=== PATIENT | female | born 1980 | race Caucasian/White ===

== ENCOUNTER 2020-05-07 21:36 | Outpatient (CLI) | payer BC ==
[~2020-05-07] VITALS: Ht 167.6 cm; Wt 82.3 kg
--- NOTE | 2020-05-07 21:30 | NUR ---
G3L2 at 40 weeks and 1 day arrives to unit with complaint of contractions every 4-5 minutes for 1 hour with some bloody show. Pt denies loss of fluid and reports good movement. Pt denies headache, RUQ pain, or changes in vision. Pt denies problems with this . Pt oriented to room, call light within reach, bed in low and locked position. Clean gown on. US and toco explained and applied. Vital signs done. Admission assessment started. SVE /-3 membranes intact. Discussed plan of care with patient and spouse.
[~2020-05-07 21:36] MED LIST: CARAFATE 1GM1 G PO; LEXAPRO20 MG PO; NUVARING VAG RING VG; ZANTAC 150MG T150 MG PO
[2020-05-07 21:45] VITALS: BP 137/84; PULSE 80; TEMP 98.4
[2020-05-07 22:00] VITALS: BP 125/76; PULSE 74
--- NOTE | 2020-05-07 22:20 | NUR ---
Monitors removed. Pt up to bathroom.
[2020-05-07 22:30] VITALS: BP 122/66; PULSE 72
[2020-05-07] MEDS ORDERED: PRENATAL (22:30)
--- NOTE | 2020-05-07 22:45 | NUR ---
SVE unchanged over 1 hour. Discussed discharge plan with patient, pt agreeable. See physician notification. 5491 - Discharge instructions reviewed with patient and spouse, pt verbalized understanding. Explained return precautions. Pt seen ambulating off unit with spouse.
== END 2020-05-07 22:55 | disposition home or self-care (01) ==
LOC: LDRO 21:36
DX: O62.9 Abnormality of forces of labor, unspecified (principal); Z3A.40 40 weeks gestation of pregnancy

== ENCOUNTER 2020-05-08 05:58 | Inpatient (IN) | payer BC, OTHER ==
[~2020-05-08] VITALS: Ht 167.6 cm; Wt 83.3 kg
[2020-05-08] VITALS (17 sets, daily range): BP systolic 105–140; BP diastolic 53–96; PULSE 80–126; TEMP 97.8–98.7
[~2020-05-08 05:58] MED LIST changes: +PRENATAL
--- NOTE | 2020-05-08 06:00 | NUR ---
Patient to LR4 with spouse via wheelchair, changed into gown, FHR/TOCO monitors placed and explained. Patient was here as a labor check last night and was sent home. Patient states she continued to contract and they became closer and stronger and feeling more pressure. Denies any leaking of fluid/vaginal bleeding/decreased movement. Plan of care discussed. 0610: Patient states her water broke. Clear fluid noted on chucks. 0612: SVE 6-/0 and clear amniotic fluid noted with check. Dr. Vail and Dr. Victoria notified. See physician notification. 0620: Patient off monitor to void. 0626: Patient requesting epidural and TStephan Gomez FOREST WORKER notified. 0630: IV started in left hand, blood obtained and to lab, LR infusing. Patient states she is feeling more pressure. 0635: SVE-890/0 0637: Dr. Victoria called and updated and on her way to hospital. FHR baseline 155 and recurrent variable decelerations noted.
[2020-05-08 06:46] LABS: BASO % 0.3 % (0.0-2.0); EOS % 0.2 % (0-4.0); GRAN # 13.3 (1.4-6.5); HEMATOCRIT 37.4 % (37.0-47.0); HEMOGLOBIN 12.6 g/dl (12.5-16.0); LYMPH # 1.3 (1.2-3.4); LYMPH % 8.5 % (20.0-51.0); MEAN CELL VOLUME 88 fl (80.0-100.0); MEAN CORPUSCULAR HEMOGLOBIN 30 pg (27.0-31.0); MEAN CORPUSCULAR HGB CONC 34 g/dl (33.0-37.0); MEAN PLATELET VOLUME 9.1 fl (7.4-10.4); MONO # 0.8 (0.1-0.6); MONO % 5.4 % (1.7-9.3); PLATELET COUNT 208 K/mm3 (130-400); RED BLOOD COUNT 4.26 M/mm3 (4.10-5.30); REDCELL DISTRIBUTION WIDTH-CV 12.8 % (11.5-14.5)
--- NOTE | 2020-05-08 06:50 | NUR ---
Patient sitting on edge of bed and THyun PROFESSIONAL DEVELOPMENT INSTRUCTOR at bedside for placement of epidural. Difficulty tracing FHR due to maternal position. 0700: Test dose given and patient tolerates well. 0710: Patint repositioned and safety precautions gone over. 0712: SVE 8-9/90/0 FHR baseline 135bpm and recurrent variable/early decelerations noted. 0758: Dr. Vail at bedside and assessing patient and FHR strip. SVE-9/100/+1. Late deceleration noted while checks cervix. Dr. Vail orders to start pitocin at this time. 0805: Pitocin discussed with patient and started at 2mU per protocol. Patient repsostioned and still uncomfortable with contractions. TStephan Patricia PROFESSIONAL DEVELOPMENT INSTRUCTOR dosing patient. Difficulty tracing FHR and this RN at bedside adjusting monitor. 0812: Patient left lateral and monitor being adjusted. 0815: T.Patricia PROFESSIONAL DEVELOPMENT INSTRUCTOR at bedside to replace epidrual. Patient in left lateral position. 0828: Test dose given and patient tolerates well. Difficulty tracing FHR due to maternal position, this RN adjusting monitor. 0840: SVE-10/100/+[address] Vail at nurses station and notified. 0841: Patient prepped for vaginal delivery. Bed taken apart and pericare done. 0842: Patient begins to push with contraction per Dr. Vail orders. 0844: Spontaneous vaginal delivery of viable female-head followed by body. Infant bulb syringed and to patients abdomen and Clifford RN assumes care of infant. Cord clamped by physician and cut by FOB. Cord blood obtained. 0852: Spontaneous delivery of placenta and pitocin bolus started at 333mU per protocol. Dr. Vail straight catherizes patient and begins to repair labial laceration. Patient repositioned and ice pack to perineum. Plan of care discussed.
--- NOTE | 2020-05-08 06:55 | NUR ---
Dr. Victoria on unit and reviewing FHR strip. Dr. Vail calls and updates that he is on the way to hospital to take over. 0700: Dr. Vail at nurses station and reviewing FHR strip and no new orders at this time. 0730: Dr. Vail continues to watch FHR strip.
[2020-05-09] MEDS ORDERED: MOTRIN 600600 MG/TAB PO (08:01)
[2020-05-09 08:50] VITALS: BP 116/70; PULSE 89; TEMP 98.8
--- NOTE | 2020-05-09 10:10 | NUR ---
Initial visit; Parents thanked Quilting Machine Helper for offering congratulations and God's blessings for the of their daughter. Quilting Machine Helper thanked family for choosing [facility].
== END 2020-05-09 12:00 | disposition home or self-care (01) | DRG 807 ==
LOC: LDRO 05:58 → LDR 06:24 → OB 11:20
PROVIDERS: Obstetrics & Gynecology; ADMIT Obstetrics & Gynecology
PROC: 10E0XZZ Delivery of Products of Conception, External Approach (ICD-10-PCS; principal; 2020-05-08)
PROC: 0HQ9XZZ Repair Perineum Skin, External Approach (ICD-10-PCS; 2020-05-08)
DX: O48.0 Post-term pregnancy (principal); Z37.0 Single live birth; Z3A.40 40 weeks gestation of pregnancy; O70.0 First degree perineal laceration during delivery
CPT/HCPCS: J2590; J7120